=== PATIENT | female | born 1945 | race Caucasian/White ===

== ENCOUNTER 2018-12-07 18:49 | Emergency (ER) | payer MEDICARE ==
[~2018-12-07] VITALS: Ht 154.9 cm; Wt 109.1 kg
[~2018-12-07 18:49] MED LIST: ACTOS30 MG OR; ALBUTEROL90 MCG IN; ASPIRIN LOW DOS81 M2 PO; COREG12.5 MG PO; GLYBURIDE5 MG OR; HYDROCO/APAP1 TA9 PO; HYZAAR1 TA1 OR; HYZAAR1 TA2 PO; IBUPROFEN800 MG OR; LANTUS100 UNIT/M SC; LEVAQUIN500 MG OR; LEVOTHYROXIN88 MCG OR; LORTAB 5 OR; PRAVACHOL40 MG PO; TRICOR145 MG OR
[2018-12-07] MEDS ORDERED: DITROPAN PO (19:15)
[2018-12-07] MEDS ORDERED: LANTUS100 UNIT/M SC (19:15)
[2018-12-07] MEDS ORDERED: TIZANIDINE2 MG PO (19:16)
[2018-12-07] MEDS ORDERED: AMLODIPINE BESYL5 MG PO (19:16)
[2018-12-07] MEDS ORDERED: HUMALOG100 UNIT/M SC (19:17)
[2018-12-07 20:00] LABS: HEMOGLOBIN 12.9 g/dl (12.0-16.0); IMMATURE GRANULOCYTES 1.1 % (0.0-5.0); MEAN CORPUSCULAR HGB CONC 32.3 g/L CALC (32.0-36.0); NEUT# 6.15 thou/uL (2.00-7.15); RED BLOOD COUNT 4.3 mill/uL (4.20-5.60); RED CELL DISTRI WIDTH 12.9 % (11.5-15.5)
[2018-12-07 20:03] LABS: ALBUMIN 4.1 g/dL (3.2-5.0); BILIRUBIN, TOTAL 0.3 mg/dL (0.0-1.4); CREATININE 1.6 mg/dL (0.5-1.0); POTASSIUM 4.1 mmol/l (3.5-5.1); TOTAL PROTEIN 7.4 g/dL (6.3-8.2)
[2018-12-07 20:04] LABS: PROTHROMBIN TIME 10.6 SECONDS (9.0-12.5)
[2018-12-07 20:45] VITALS: BP 150/76
== END 2018-12-07 20:50 | disposition short-term general hospital (02) ==
LOC: ED 18:49
PROVIDERS: Emergency Medicine
DX: I63.9 Cerebral infarction, unspecified (principal); R29.704 NIHSS score 4; R53.1 Weakness; G81.90 Hemiplegia, unspecified affecting unspecified side; I10 Essential (primary) hypertension; E11.9 Type 2 diabetes mellitus without complications; Z79.4 Long term (current) use of insulin
CPT/HCPCS: J2997

== ENCOUNTER 2020-04-06 06:23 | Inpatient (IN) | payer MEDICARE ==
[2020-04-06] VITALS (11 sets, daily range): BP systolic 139–163; BP diastolic 53–75
[~2020-04-06] VITALS: Ht 154.9 cm; Wt 112.3 kg
[~2020-04-06 06:23] MED LIST changes: +AMLODIPINE BESYL5 MG PO; +DITROPAN PO; +HUMALOG100 UNIT/M SC; +TIZANIDINE2 MG PO
--- NOTE | 2020-04-06 06:25 | NUR ---
PATIENT TO ROOM 13 VIA EMS STRETCHER. C/O SOB ON/OFF FOR TWO WEEKS AND WORSE IN THE LAST 24 HOURS. PLACED ON MONITOR AND TRIAGE COMPLETED AT BEDSIDE.
--- NOTE | 2020-04-06 06:45 | NUR ---
PT INDICATES SHE IS BREATHING EASIER
[2020-04-06 06:55] LABS: HEMATOCRIT 30.9 % (37.0-47.0); HEMOGLOBIN 9.6 g/dl (12.0-16.0); IMMATURE GRANULOCYTES 2.2 % (0.0-5.0); MEAN CELL VOLUME 96.9 fL CALC (80.0-100.0); MEAN CORPUSCULAR HGB 30.1 pG CALC (26.0-32.0); MEAN CORPUSCULAR HGB CONC 31.1 g/dL CAL (32.0-36.0); RED BLOOD COUNT 3.19 mill/uL (4.20-5.60); RED CELL DISTRI WIDTH 12.9 % (11.5-15.5)
--- NOTE | 2020-04-06 06:57 | NUR ---
REPORT TO JAYE RIBEIRO.
[2020-04-06 07:00] LABS: MANUAL DIFFERENTIAL YES; PLATELET COUNT 339 thou/uL (130-400)
--- NOTE | 2020-04-06 07:00 | NUR ---
Assumed care of pt. pt in stretcher with hob elevated, resp labored with abd retractions noted, bipap on pt with rt at bedside to adjust settings. ekg obtained shows sr with lbbb. vital signs stable at this time. family at bedside.
[2020-04-06 07:10] LABS: ALBUMIN 4.5 g/dL (3.2-5.0); ALKALINE PHOSPHATASE 80 u/l (38-126); BILIRUBIN, TOTAL 0.4 mg/dL (0.0-1.4); BUN 62 mg/dL (8-23); BUN/CREATININE RATIO 27 (12-20 (CALC)); CARBON DIOXIDE 24 mmol/l (22-30); CHLORIDE 101 mmol/l (95-108); CREATININE 2.3 mg/dL (0.5-1.0); GFR 21 ML/MIN (>=60 (CALC)); GFR FOR AFR.AMER. 25 ML/MIN (>=60 (CALC)); SODIUM 135 mmol/l (137-146); TOTAL PROTEIN 7.8 g/dL (6.3-8.2)
[2020-04-06 07:11] LABS: ANION GAP 15 (6-22 (CALC)); POTASSIUM 5.3 mmol/l (3.5-5.1); SGOT/AST 49 u/l (9-36)
[2020-04-06 07:22] LABS: MYOGLOBIN 190 ng/mL (0 - 62)
--- NOTE | 2020-04-06 08:13 | NUR ---
Pt states " breathing is better" pt remains on bipap. Warm blankets given for comfort. family remains at bedside. vital signs stable.
[2020-04-06] MEDS ORDERED: LIPITOR40 M1 PO (08:15)
[2020-04-06] MEDS ORDERED: ARNUITY EL50 MCG/ACT IN (08:18)
[2020-04-06] MEDS ORDERED: LASIX20 MG PO (08:19)
[2020-04-06] MEDS ORDERED: HYDRALAZINE10 MG PO (08:19)
[2020-04-06] MEDS ORDERED: METOLAZONE5 MG PO (08:20)
[2020-04-06] MEDS ORDERED: LORATADINE10 M1 PO (08:22)
[2020-04-06 08:57] LABS: URINE BILIRUBIN - DIPSTICK NEGATIVE (NEGATIVE); URINE BLOOD DIPSTICK TRACE-INTACT (NEGATIVE); URINE COLOR YELLOW; URINE GLUCOSE - DIPSTICK NEGATIVE (NEGATIVE); URINE KETONE NEGATIVE (NEGATIVE); URINE LEUK ESTERASE NEGATIVE (NEGATIVE); URINE NITRITE - DIPSTICK NEGATIVE (Negative); URINE UROBILINOGEN - DIPSTICK 0.2 E.U./dL (0.2)
--- NOTE | 2020-04-06 08:59 | NUR ---
Pt resting comfortably in bed, daughter at bedside, vital sign stable at this time. 700cc clear urine noted in crockett catheter bag.
[2020-04-06 09:11] LABS: URINE PROTEIN - DIPSTICK Trace mg/dL (NEG-TRACE)
--- NOTE | 2020-04-06 09:16 | NUR ---
SBAR PRINTED TO FLOOR
--- NOTE | 2020-04-06 10:03 | NUR ---
Report to Renetta CEE.
--- NOTE | 2020-04-06 10:40 | NUR ---
Pt taken to ICU via stretcher in stable condition. She voiced appreciation of care, states' staff was great"
--- NOTE | 2020-04-06 10:50 | NUR ---
PT ARRIVED TO UNIT AT 1025 VIA STRETCHER WITH ER STAFF; ALERT AND ORIENTED. ASSISTED TO BED X 4 PERSON ASSIST; PT TOLERATED TRANSFER WELL. ARRIVED ON OXYGEN 2L VIA NC; SPO2 95-97%; RESPIRATIONS EVEN AND UNLABORED. DENIES PAIN CURRENLTY; REPORTS CHRONIC BACK PAIN WHICH SHE RECEIVES STEROID INJECTIONS FOR; ALSO TAKES LORTAB NEEDED AT HOME. NITRO GTT INFUSING ON ARRIVAL AT 5 MCG/MIN WITH FLUIDS AT KVO. LAFLEUR DRAINGING CLEAR YELLOW URINE; 900ML EMPTIED AT THIS TIME. LUNGS ARE DIMINISHED; 4+ BLE EDEMA. SKIN INTACT. 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 ORIENTED TO ROOM AND CALL LIGHT SYSTEM. PLAN OF CARE DISCUSSED. PT ENCOURAGED TO VERBALIZE CONCERNS. STATES UNDERSTANDING. SAFETY MEASURES IN PLACE. CALL LIGHT WITHIN REACH.
--- NOTE | 2020-04-06 11:09 | NUR ---
Q4 DUONEB NOT ADMINISTERED AT THIS TIME PER PT IS R/O COVID AND MDI ORDER IS NEEDED. THIS WAS COMMUNICATED TO rn AND METER CHANGES RECORDS CLERK. PT IN NO APPARENT DISTRESS. VITAL SIGNS STABLE. RT TO MONIOR.
--- NOTE | 2020-04-06 12:01 | NUR ---
NITRO DRIP TITRATED UP TO 10 MCG/MIN FOR ELEVATED BLOOD PRESSURE.
--- NOTE | 2020-04-06 13:17 | NUR ---
DAUGHTER CALLED FOR UPDATE. PT RESTING SEMI FOWLERS WITH EYES CLOSED AND NO SIGNS OF DISTRESS. VSS.
--- NOTE | 2020-04-06 16:00 | NUR ---
PT SITTING UP IN BED TALKING TO CASE MANAGEMENT ON HER CELL PHONE; ALERT AND ORIENTED. CONTINUES TO NITRO DRIP AT 10 MCG/MIN; IV SITES APPEAR HEALTHY. SAFETY MEASURES IN PLACE. CALL LIGHT WITHIN REACH.
--- NOTE | 2020-04-06 18:00 | NUR ---
SITTING UP EATING DINNER. NO REQUESTS OR CONCERNS AT THIS TIME.
--- NOTE | 2020-04-06 20:00 | NUR ---
RESTING IN BED IN SEMI-FOWLERS POSITION. RESP UNALBORED AT REST. O2 ON AT 2 L NC. O2 SAT 97% BREATH SOUNDS CLEAR IN UPPER LOBES DIMINISHED IN BASES. PATIENT STATES SHE FEELS SHE IS BREATHING BETTER THAN EARLIER TODAY. 4+ PITTING EDEMA OF BLE. WEAK PERIPHERAL PULSES PALPABLE. SALINE LOCK INTACT IN LAC AND IV IN LW WITH NS AT KVO AND NTG GTT AT 10 MCG/MIN. PATIENT DENIES ANY CHEST PAIN OR DISCOMFORTS. GARMENT INSPECTOR SHOWS SR WITH IVCD. DISCUSSED PLAN OF CARE. DENIES NEEDS AT THIS TIME. DR SHEEHAN INFORMED OF ELEVATED TROPONIN OF 0.134. NO NEW ORDERS AT THIS TIME.
--- NOTE | 2020-04-06 22:00 | NUR ---
WATCHING TV. VSS. NO COMPLAINTS VOICED. GIVEN HS SNACK OF KORINA VILLALOBOS AND STUART.
[2020-04-07] VITALS (21 sets, daily range): BP systolic 122–168; BP diastolic 51–74
--- NOTE | 2020-04-07 00:05 | NUR ---
VSS. NO C/O CHEST PAIN OR DISCOMFORTS, NO C/O SOB. RESP NON-LABORED AT REST. O2 AT 2 L NC, O2 SAT 96% SR WITH BBB ON MONITOR. NTG GTT CONTINUES AT 10 MCG/MIN.
--- NOTE | 2020-04-07 02:00 | NUR ---
NO CHANGES TO REPORT. RESTING IN PRONE POSITION.
--- NOTE | 2020-04-07 03:00 | NUR ---
NO CHANGES TO REPORT. RESTING IN PRONE POSITION.
--- NOTE | 2020-04-07 04:05 | NUR ---
RESTING QUIETLY IN BED. IN NO APPARENT DISTRESS.
[2020-04-07 06:25] LABS: HEMATOCRIT 27.1 % (37.0-47.0); HEMOGLOBIN 8.4 g/dl (12.0-16.0); IMMATURE GRANULOCYTES 1.5 % (0.0-5.0); MEAN CELL VOLUME 95.8 fL CALC (80.0-100.0); MEAN CORPUSCULAR HGB 29.7 pG CALC (26.0-32.0); NEUT# 14.73 thou/uL (2.00-7.15); RED BLOOD COUNT 2.83 mill/uL (4.20-5.60); RED CELL DISTRI WIDTH 12.7 % (11.5-15.5)
[2020-04-07 06:49] LABS: BILIRUBIN, TOTAL 0.4 mg/dL (0.0-1.4); CHOLESTEROL HDL RATIO 3.3 (<4.4 (CALC)); CREATININE 2.4 mg/dL (0.5-1.0); POTASSIUM 4.9 mmol/l (3.5-5.1)
[2020-04-07 06:53] LABS: MAGNESIUM 2.8 mg/dL (1.6-2.3)
--- NOTE | 2020-04-07 07:35 | NUR ---
REPORT RECEIVED FROM JAYE JOSHUA. PT RESTING IN BED SEMI FOWLERS; ALERT AND ORIENTED X 3. PULLED UP IN BED AND REPOSITIONED INTO HIGH FOWLERS FOR BREAKFAST. DENIES PAIN. RESPIRATIONS EVEN AND UNLABORED ON OXYGEN 2L VIA NC. NITRO INFUSING AT 10 MCG/MIN; NS AT KVO. PERIPHERAL IV SITES X 2 APPEAR HEALTHY. LUNGS ARE DIMINISHED; PITTING EDEMA SLIGHTLY IMPROVED TO BLE. LAFLEUR CATHETER DRAINING CLEAR PALE YELLOW URINE. PLAN OF CARE REVIEWED. PT ENCOURAGED TO VERBALIZE CONCERNS. STATES UNDERSTANDING. SAFETY MEASURES IN PLACE. CALL LIGHT WITHIN REACH.
--- NOTE | 2020-04-07 08:55 | NUR ---
FAMILY CALLED FOR UPDATE.
--- NOTE | 2020-04-07 09:47 | NUR ---
DR. RILEY AT BEDSIDE.
--- NOTE | 2020-04-07 11:56 | NUR ---
PT ASSISTED UP INTO BEDSIDE FOR LUNCH WITH FEET ELEVATED. NITRO DRIP TITRATED DOWN TO 5 MCG/MIN DUE TO WNL BLOOD PRESSURES. SPO2 REMAINS IN THE HIGH 90'S ON 2L VIA NC.
--- NOTE | 2020-04-07 15:17 | NUR ---
UP TO BSC FOR LARGE BM THEN REPOSITIONED INTO BED SEMI FOWLERS.
--- NOTE | 2020-04-07 16:33 | NUR ---
FAMILY CALLED WITH MULTIPLE QUESTIONS AND CONCERNS REGARDING PTS PLAN OF CARE; UPDATED AND NOTIFIED THAT MD WILL UPDATE AFTER CARDIOLOGY CONSULT. SON AND PATIENT REQUESTING THAT HER HOME LANTUS BE USED INSTEAD OF LEVEMIR; DR. RILEY GAVE NEW ORDERS FOR LANTUS. SON TO BRING HOME MED.
--- NOTE | 2020-04-07 18:26 | NUR ---
LANTUS GIVEN; PT ATE 100% OF DINNER. SPEAKING TO FAMILY ON CELL PHONE. NO FURTHER REQUESTS OR CONCERNS AT THIS TIME.
--- NOTE | 2020-04-07 20:20 | NUR ---
pt is awake, alert and oriented x4. 2 l nc. sob with exertion only. sr on tele. afebrile. poc for discussed, pt understands and agrees. crockett intact, drains yellow/clear urine. nitro drip infusing properly, ns at kvo. pt able to self reposition. nursing assessment performed. denies chest pain or any pain. call light within reach.
--- NOTE | 2020-04-07 21:32 | NUR ---
NOTIFIED DR RILEY OF PATIENT'S ACCUCCHECK RESULTS TONIGHT. NEW ORDERS RECEIVED.
--- NOTE | 2020-04-07 22:10 | NUR ---
PATIENT GIVEN PO BEDTIME MED AND NOVOLOG [address] ORDER. PT HAS NO COMPLAINTSOF PAIN, NO NEEDS AT THIS TIME. CALL LIGHT WITHIN REACH.
[2020-04-08] VITALS (9 sets, daily range): BP systolic 141–176; BP diastolic 51–78
--- NOTE | 2020-04-08 01:10 | NUR ---
PT AWAKENS EASILY WITH VERBAL STIMULI. AFEBRILE. NO COMPLAINTS OF PAIN. 1000 ML OF URINE EMPTIED FROM FEOLY BAG. CELLPHONE PUT TO CHARGE PER REQUEST. CALL LIGHT WITHIN REACH.
[2020-04-08 05:28] LABS: HEMATOCRIT 27.6 % (37.0-47.0); HEMOGLOBIN 8.6 g/dl (12.0-16.0); IMMATURE GRANULOCYTES 1.7 % (0.0-5.0); MEAN CELL VOLUME 94.2 fL CALC (80.0-100.0); MEAN CORPUSCULAR HGB 29.4 pG CALC (26.0-32.0); MEAN CORPUSCULAR HGB CONC 31.2 g/dL CAL (32.0-36.0); NEUT# 12.61 thou/uL (2.00-7.15); RED BLOOD COUNT 2.93 mill/uL (4.20-5.60); RED CELL DISTRI WIDTH 12.6 % (11.5-15.5)
[2020-04-08 05:49] LABS: CREATININE 2.6 mg/dL (0.5-1.0); MAGNESIUM 2.6 mg/dL (1.6-2.3); POTASSIUM 4.9 mmol/l (3.5-5.1)
--- NOTE | 2020-04-08 05:52 | NUR ---
LAB CALLED BUN 99 FROM [facility] MEDEIROS.
--- NOTE | 2020-04-08 06:00 | NUR ---
PT AWAKENS EASILY WHEN SPOKEN TO. AFEBRILE. LAFLEUR CATH EMPTIED. IV X2 INTACT. NO COMPLAINTS OF PAIN. NO NEEDS AT THIS TIME. AM MEDS GIVEN.
--- NOTE | 2020-04-08 07:30 | NUR ---
REPORT RECEIVED FROM JAYE SULLIVAN. PT RESTING IN BED SEMI FOWLERS; RESPOSITIONED HIGHER IN BED FOR BREAKFAST. DENIES PAIN. RESPIRATIONS EVEN AND UNLABORED ON OXYGEN 2L VIA NC; SPO2 98%. ACCU CHECK 170. NITRO DRIP INFUSING AT 5 MCG/MIN; NS AT KVO; PERIPHERAL IV SITES APPEAR HEALTHY AND FLUSH. LAFLEUR DRAINING CLEAR PALE YELLOW URINE IN LARGE AMOUNTS. PLAN OF CARE REVIEWED. PT ENCOURAGED TO VERBALIZE CONCERNS. STATES UNDERSTANDING. SAFETY MEASURES IN PLACE. CALL LIGHT WITHIN REACH.
--- NOTE | 2020-04-08 08:30 | NUR ---
DR. RILEY AT BEDSIDE. OXGYEN REMOVED AND PT NOW ON ROOM AIR. LASIX DOSE REDUCED TO DAILY AND PO. SR ON MORTISING MACHINE OPERATOR. WILL CONTINUE TO MONITOR.
--- NOTE | 2020-04-08 10:43 | NUR ---
FAMILY CALLED FOR UPDATE AND TO EXPRESS CONCERNS. DAUGHTER IN LAW REQUESTING ECHO AND WORRIED ABOUT HOW PT WILL GET AROUND AT HOME; VERY NERVOUS. ATTEMPTED TO REASSURE; WILL NOTIFY DR. RILEY OF CONCERNS.
--- NOTE | 2020-04-08 11:28 | NUR ---
UP TO BEDSIDE CHAIR FOR LUNCH. SPO2 95% WITH ACTIVITY TO CHAIR. DENIES PAIN. RESPIRATIONS EVEN AND UNLABORED ON ROOM AIR. NITRO AND FLUIDS DISCONTINUED.
--- NOTE | 2020-04-08 12:52 | NUR ---
DR. RILEY SPOKE WITH FAMILY ON THE PHONE AND GAVE UPDATE. LAFLEUR CATHETER REMVOED; PT TOLERATED WELL. 950 ML OF PALE YELLOW URINE EMPTIED AT TIME OF DC.
--- NOTE | 2020-04-08 13:13 | NUR ---
WALK TEST PERFORMED WITH WALKER AND STAND BY ASSIST. AT REST ON ROOM AIR SPO2 97%; DURING AMBULATION SPO2 DECREASED TO 90%. MILD SOB NOTED, BUT PT DENIES ANY DISTRESS, ONLY LOWER BACK PAIN. PT STATES SHE IS USUALLY ONLY ABLE TO TOLERATE SHORT WALKS DUE TO HER CHRONIC BACK PAIN.
--- NOTE | 2020-04-08 13:59 | NUR ---
PERIPHERAL IV SITES DISCONTINUED; BOTH SITES APPEAR HEALTHY; CATHETERS INTACT AFTER DC. PT TOLERATED WELL. DAUGHTER IN LAW ALONDRA NOTIFIED THAT PT IS READY FOR DISCHARGE. PHYSICAL SCRIPT PROVIDED FOR OUTPATIENT ECHO.
--- NOTE | 2020-04-08 14:55 | NUR ---
Discharge instructions given. Patient verbalizes understanding of same. Discharged in stable condition via Wheelchair to Home with family. All belongings sent with pt.
== END 2020-04-08 14:55 | disposition home or self-care (01) | DRG 291 ==
LOC: ED 06:23 → ED-I 09:10 → ED 09:18 → ICU 09:19
PROVIDERS: Emergency Medicine; Nurse Practitioner; ADMIT Internal Medicine; ATTEND Internal Medicine
PROC: 5A09357 Assistance with Respiratory Ventilation, Less than 24 Consecutive Hours, Continuous Positive Airway Pressure (ICD-10-PCS; principal; 2020-04-06)
DX: I13.0 Hypertensive heart and chronic kidney disease with heart failure and stage 1 through stage 4 chronic kidney disease, or unspecified chronic kidney disease (principal); J96.01 Acute respiratory failure with hypoxia; N17.9 Acute kidney failure, unspecified; I24.8 Other forms of acute ischemic heart disease; I50.9 Heart failure, unspecified; I44.7 Left bundle-branch block, unspecified; E11.22 Type 2 diabetes mellitus with diabetic chronic kidney disease; N18.9 Chronic kidney disease, unspecified; E03.9 Hypothyroidism, unspecified; E87.5 Hyperkalemia; E78.5 Hyperlipidemia, unspecified; M54.9 Dorsalgia, unspecified; G89.29 Other chronic pain; Z79.4 Long term (current) use of insulin; Z20.828 Contact with and (suspected) exposure to other viral communicable diseases
CPT/HCPCS: J3475

== ENCOUNTER 2020-05-07 12:17 | Emergency (ER) | payer MEDICARE ==
[~2020-05-07] VITALS: Ht 154.9 cm; Wt 100.0 kg
[~2020-05-07 12:17] MED LIST changes: +ARNUITY EL50 MCG/ACT IN; +HYDRALAZINE10 MG PO; +LASIX20 MG PO; +LIPITOR40 M1 PO; +LORATADINE10 M1 PO; +METOLAZONE5 MG PO
[2020-05-07 15:19] LABS: URINE BILIRUBIN - DIPSTICK NEGATIVE (NEGATIVE); URINE BLOOD DIPSTICK NEGATIVE (NEGATIVE); URINE CLARITY SL CLOUDY; URINE COLOR YELLOW; URINE GLUCOSE - DIPSTICK NEGATIVE (NEGATIVE); URINE KETONE NEGATIVE (NEGATIVE); URINE LEUK ESTERASE TRACE (Negative); URINE NITRITE - DIPSTICK NEGATIVE (Negative); URINE PH 6.5 (4.5-8.0); URINE PROTEIN - DIPSTICK 100 mg/dL (NEG-TRACE); URINE UROBILINOGEN - DIPSTICK 0.2 E.U./dL (0.2)
[2020-05-07 15:25] LABS: URINE SQUAMOUS EPITHELIAL CELL FEW EPI/hpf (0-FEW)
[2020-05-07 15:26] LABS: URINE BACTERIA MANY hpf
[2020-05-07 15:31] LABS: HEMATOCRIT 28.4 % (37.0-47.0); HEMOGLOBIN 8.9 g/dl (12.0-16.0); IMMATURE GRANULOCYTES 1.2 % (0.0-5.0); MEAN CELL VOLUME 96.3 fL CALC (80.0-100.0); MEAN CORPUSCULAR HGB 30.2 pG CALC (26.0-32.0); MEAN CORPUSCULAR HGB CONC 31.3 g/dL CAL (32.0-36.0); NEUT# 8.54 thou/uL (2.00-7.15); RED BLOOD COUNT 2.95 mill/uL (4.20-5.60); RED CELL DISTRI WIDTH 12.9 % (11.5-15.5)
[2020-05-07 15:43] LABS: ALBUMIN 3.9 g/dL (3.2-5.0); BILIRUBIN, TOTAL 0.4 mg/dL (0.0-1.4); CREATININE 2.5 mg/dL (0.5-1.0); POTASSIUM 3.7 mmol/l (3.5-5.1); TOTAL PROTEIN 6.6 g/dL (6.3-8.2)
[2020-05-07 15:58] VITALS: BP 147/63
== END 2020-05-07 15:58 | disposition short-term general hospital (02) ==
LOC: ED 12:17
PROC: 0T9B70Z Drainage of Bladder with Drainage Device, Via Natural or Artificial Opening (ICD-10-PCS; principal; 2020-05-07)
PROC: 2W3MX1Z Immobilization of Left Lower Extremity using Splint (ICD-10-PCS; 2020-05-07)
DX: S72.402A Unspecified fracture of lower end of left femur, initial encounter for closed fracture (principal); M97.12XA Periprosthetic fracture around internal prosthetic left knee joint, initial encounter; E11.9 Type 2 diabetes mellitus without complications; I10 Essential (primary) hypertension; E03.9 Hypothyroidism, unspecified; E66.9 Obesity, unspecified; W01.0XXA Fall on same level from slipping, tripping and stumbling without subsequent striking against object, initial encounter; Y92.89 Other specified places as the place of occurrence of the external cause; Z79.4 Long term (current) use of insulin

== ENCOUNTER 2020-10-14 09:36 | Inpatient (IN) | payer MEDICARE ==
[~2020-10-14] VITALS: Ht 154.9 cm; Wt 107.5 kg
--- NOTE | 2020-10-14 08:00 | NUR ---
PT IN THE BED. NO COMPLAINT OF PAIN. OXYGEN IS STILL RUNNING. NO SIGNS OF RESPIRATORY DISTRESS. BP IS HIGH MEDICATION GIVEN. PT WOULD LIKE TO LEAVE. EDUCATED HER ON WHO MAKES THAT DECISION AND THE DOCTORS WILL BE HERE IN THE MORNING IF SHE WOULD LIKE TO TALK TO THEM. PT TUCKED IN BED CONTINUE TO MONITOR PT. CALL LIGHT WITHIN REACH.
--- NOTE | 2020-10-14 09:36 | NUR ---
PT TO ROOM 15 VIA EMS BEDSIDE TRAIGE.
--- NOTE | 2020-10-14 10:01 | NUR ---
Reassessment of patient completed. No distress noted.
[2020-10-14 11:02] LABS: HEMATOCRIT 30.8 % (37.0-47.0); HEMOGLOBIN 9.6 g/dl (12.0-16.0); MEAN CELL VOLUME 96.9 fL CALC (80.0-100.0); MEAN CORPUSCULAR HGB 30.2 pG CALC (26.0-32.0); MEAN CORPUSCULAR HGB CONC 31.2 g/dL CAL (32.0-36.0); NEUT# 9.17 thou/uL (2.00-7.15); RED BLOOD COUNT 3.18 mill/uL (4.20-5.60); RED CELL DISTRI WIDTH 13.8 % (11.5-15.5)
--- NOTE | 2020-10-14 11:10 | NUR ---
ENCOURAGED PT TO PROVIDE A URINE SAMPLE
[2020-10-14 11:17] LABS: ALBUMIN 4.1 g/dL (3.2-5.0); BILIRUBIN, TOTAL 0.6 mg/dL (0.0-1.4); CREATININE 2.4 mg/dL (0.5-1.0); POTASSIUM 4.8 mmol/l (3.5-5.1); TOTAL PROTEIN 7.6 g/dL (6.3-8.2)
[2020-10-14 11:21] LABS: ACT PARTIAL THROMBO TIME 29.4 SECONDS (20.0-32.5); INTERNATIONAL NORMALIZED RATIO 1.2 RATIO (0.7-1.3); PROTHROMBIN TIME 11.6 SECONDS (9.0-12.5)
[2020-10-14 11:23] LABS: D-DIMER 1.23 mg/L (0.19-0.60)
--- NOTE | 2020-10-14 11:49 | NUR ---
SHE HAS DECLINED THE STRAIT CATH @ THIS TIME
[2020-10-14] MEDS ORDERED: CARVEDILOL25 MG PO (12:31)
[2020-10-14] MEDS ORDERED: SINGULAIR10 MG PO (12:32)
[2020-10-14] MEDS ORDERED: FERROUS SULF325 M2 PO (12:32)
[2020-10-14] MEDS ORDERED: LANTUS100 UNIT/M SC ×2 (12:33)
[2020-10-14] MEDS ORDERED: DITROPAN XL5 MG PO (12:34)
--- NOTE | 2020-10-14 12:36 | NUR ---
Reassessment of patient completed. No distress noted.
[2020-10-14] MEDS ORDERED: FLONASE AL50 MCG/ACT EN (12:42)
[2020-10-14] MEDS ORDERED: HYDRALAZINE10 M2 PO (13:22)
[2020-10-14] MEDS ORDERED: TIZANIDINE2 MG PO (13:23)
[2020-10-14] MEDS ORDERED: LORTAB 5/3255 MG PO (13:26)
[2020-10-14] MEDS ORDERED: LASIX 20 MG TAB20 MG PO (13:27)
[2020-10-14] MEDS ORDERED: FLONASE SE27.5 MCG/S (13:28)
[2020-10-14] MEDS ORDERED: SENOKOT S1 TAB PO (13:29)
--- NOTE | 2020-10-14 13:39 | NUR ---
Reassessment of patient completed. No distress noted.
--- NOTE | 2020-10-14 13:57 | NUR ---
PATIENT IS RESTING IN STRETCHER WITH NO S/S OF DISTRESS NOTED. DAUGHTER IN LAW IN ROOM ASSISTED WITH QUESTIONS AND STATED PATIENT HAD A BM 10/13/20. ASSESSMENT DONE . PATIENT IS A&O X2. LUNGS SOUNDS/DIMINISHED. +1 EDEMA IN FREIDA LEGS. REDNESS IN BUTTOCKS. CALL LIGHT IN REACH.
--- NOTE | 2020-10-14 15:30 | NUR ---
PT TAKEN TO 2ND FLOOR ON TELE BY JAYE
--- NOTE | 2020-10-14 16:05 | NUR ---
REPORT RECEIVED FROM KEELY IN ED, PT ARRIVED ON UNIT @ 1525 TRANSPORTED VIA STRETCHER AND ASSISTED TO BED WITH MAX ASSIST OF 4 STAFF. HYPERVENTILATING WITH DISTRESS USING ASSESSORY MYSCLES AND STATING "I CANT BREATHE". O2 SAT WAS 82% ON R/A, O2 @ 3L APPIED, SATS WENT UP 87%, O2 INCREASED TO 5L THEN SATS UP 97%. PT REPOSITIONED TO HIGH FOWLERS. RESPIRATORY CALLED TO ASESS PT. BREATHING IMPROVED, O2 DOWN 3L WITH SATS MAINTAINING @ 97% RESP ARRIVED AND STATED PT OK AT THIS TIME. WILL CONTINUE TO MONITOR.
--- NOTE | 2020-10-14 16:45 | NUR ---
BREATHING IMPROVED BUT ASSESSORY MUSCLES ARE STILL BEING USES.
[2020-10-14 19:00] VITALS: BP 165/71
[2020-10-15] VITALS: BP 146/54
--- NOTE | 2020-10-15 | NUR ---
PT CONTINUES SLEPING PEACEFULLY IN BED WITH OXYGEN STILL RUNNING. WILL CONTINUE TO MONITOR. CALL LIGHT WITHIN REACH
[2020-10-15 04:00] VITALS: BP 157/72
[2020-10-15 06:07] LABS: HEMOGLOBIN 9.2 g/dl (12.0-16.0); IMMATURE GRANULOCYTES 1.5 % (0.0-5.0); MEAN CELL VOLUME 97.1 fL CALC (80.0-100.0); MEAN CORPUSCULAR HGB 29.8 pG CALC (26.0-32.0); MEAN CORPUSCULAR HGB CONC 30.7 g/dL CAL (32.0-36.0); NEUT# 6.43 thou/uL (2.00-7.15); RED BLOOD COUNT 3.09 mill/uL (4.20-5.60); RED CELL DISTRI WIDTH 13.9 % (11.5-15.5)
[2020-10-15 06:30] LABS: ALBUMIN 3.7 g/dL (3.2-5.0); BILIRUBIN, TOTAL 0.6 mg/dL (0.0-1.4); CREATININE 2.1 mg/dL (0.5-1.0); POTASSIUM 4.9 mmol/l (3.5-5.1)
[2020-10-15 08:56] VITALS: BP 157/55
--- NOTE | 2020-10-15 08:56 | NUR ---
PT RESTING IN SEMI FOWLERS POSITION.PT IS A/O X3. ASSESSMENT AND VITALS COMPLETED. BP 157/55, HR 80, O2 99% ON 2.5L NC. RESPIRATIONS ARE EVEN AND UNLABORED WITH NO DISTRESS NOTED. HEART RHYTHM IS NORMAL WITH TELE IN PLACE, SR WITH IVCD PER ER MONITORING. BOWEL SOUNDS ARE ACTIVE.RADIAL PULSE STRONG.PEDAL PULSES WEAK. #20GEMS LEFT WRIST FLUSHED, SITE APPEARS HEALTHY AND PATENT. RIGHT SIDED WEAKNESS NOTED. WOUND NOTED ON LEFT BUTTOCKS. REDDNESS NOTED TO GROIN AND ABD FOLD. PT DENEIS OF ANYPAINS OR DISCOMFORTS AT THIS TIME. ALL SAFETY PRECAUTIONS ARE IN PLACE WITH CALL LIGHT IN REACH. AIR/CONTACT PRECAUTIONS ARE IN PLACE.WILL CONTINUE TO MONITOR
[2020-10-15 12:18] VITALS: BP 132/56
[2020-10-15 13:25] LABS: URINE BILIRUBIN - DIPSTICK NEGATIVE (NEGATIVE); URINE BLOOD DIPSTICK NEGATIVE (NEGATIVE); URINE COLOR YELLOW; URINE GLUCOSE - DIPSTICK NEGATIVE (NEGATIVE); URINE KETONE NEGATIVE (NEGATIVE); URINE NITRITE - DIPSTICK NEGATIVE (Negative); URINE PH 5.5 (4.5-8.0); URINE PROTEIN - DIPSTICK >=300 mg/dL (NEG-TRACE); URINE SPECIFIC GRAVITY 1.025; URINE UROBILINOGEN - DIPSTICK 0.2 E.U./dL (0.2)
[2020-10-15 13:27] LABS: URINE LEUK ESTERASE MODERATE (NEGATIVE)
[2020-10-15 13:36] LABS: URINE SQUAMOUS EPITHELIAL CELL FEW EPI/hpf (0-FEW)
[2020-10-15 14:50] VITALS: BP 118/50
--- NOTE | 2020-10-15 16:04 | NUR ---
DAUGHTER UPDATED ON PT STATUS. PASSCODE PROVIDED.
--- NOTE | 2020-10-15 16:56 | NUR ---
PT RESTING IN SEMI FOWLERS POSITION. RESPIRATIONS ARE EVEN AND UNLABORED ON 2L NC. TELE MONITORING IN PLACE. ATTEMPTED TO START NEW IV, UNSUCCESSFUL X2. #20G IN LW REMAINS, SITE APPEARS HEALTHY AND PATENT. PT DENEIS OF ANY PAINS OR DISCOMFORTS. ALL SAFETY PRECAUTIONS AER IN PLACE WITH CALL LIGHT IN REACH. WILL CONTINUE TO MONITOR
--- NOTE | 2020-10-15 17:12 | NUR ---
ACCU CHECK RESULTING IN 415. GULCOSE ORDERED AND 6 UNITS ADMINISTERED.
--- NOTE | 2020-10-15 17:40 | NUR ---
#24G IN RFA STARTED BY JAYE KEYS. PT TOLERATED WELL. #20G REMOVED FROM LW, WITH CATHATER STILL INTACT.
--- NOTE | 2020-10-15 18:38 | NUR ---
STAT GLUCOSE RESULTING IN 232. REPEAT OF ACCUCHECK RESULTING IN 266. LOGAN PYLE NOTIFIED.
[2020-10-15 19:00] VITALS: BP 140/54
--- NOTE | 2020-10-15 22:06 | NUR ---
PHYSICAL ASSESMENT COMPLETE. PT CURRENTLY DENIES PAIN OR DISCOMFORT. SCHEDULED MEDICATIONS AND PRN MEDICATION ADMINISTERED, SEE E-MAR. PT DENIES ANY NEEDS AT THIS TIME. PLAN OF CARE REVIEWED, PT DENIES QUESTIONS, VERBALIZES UNDERSTANDING. ITEMS WITHIN REACH, BED LOCKED IN LOW POSITION W/ BEDRAILS UP X2. CALL BENITES WITHIN REACH, AGREES TO CALL PRN.
[2020-10-16] VITALS: BP 155/55
--- NOTE | 2020-10-16 00:03 | NUR ---
PT LAYING IN BED WITH EYES CLOSED, APPEARS TO BE SLEEPING, APPEARS COMFORTABLE AND IN NO DISTRESS. RESPIRATIONS REGULAR AND UNLABORED. ITEMS REMAIN WITHIN REACH, CALL BENITES REMAINS WITHIN REACH. BED REMAINS LOCKED AND IN LOW POSITION WITH BEDRAILS UP X2. WILL CONTINUE TO MONITOR.
[2020-10-16 04:00] VITALS: BP 148/66
[2020-10-16 05:15] LABS: HEMATOCRIT 29.7 % (37.0-47.0); HEMOGLOBIN 8.9 g/dl (12.0-16.0); MEAN CELL VOLUME 97.7 fL CALC (80.0-100.0); MEAN CORPUSCULAR HGB 29.3 pG CALC (26.0-32.0); NEUT# 7.21 thou/uL (2.00-7.15); RED BLOOD COUNT 3.04 mill/uL (4.20-5.60); RED CELL DISTRI WIDTH 13.6 % (11.5-15.5)
--- NOTE | 2020-10-16 05:27 | NUR ---
PT RESTING IN BED, NO SIGNS OF DISTRESS NOTED, RESP EVEN AND UNLABORED. PT VOICES NO NEEDS OR COMPLAINTS AT THIS TIME. CALL LIGHT IN REACH, CONTINUE TO MONITOR.
[2020-10-16 05:39] LABS: ALBUMIN 3.5 g/dL (3.2-5.0); BILIRUBIN, TOTAL 0.4 mg/dL (0.0-1.4); CREATININE 2.2 mg/dL (0.5-1.0); TOTAL PROTEIN 6.5 g/dL (6.3-8.2)
--- NOTE | 2020-10-16 07:30 | NUR ---
RECIEVED REPORT FROM JOHN. CEE
[2020-10-16 07:46] VITALS: BP 157/68
--- NOTE | 2020-10-16 07:46 | NUR ---
PT RESTING IN SEMI FOWLERS POSITION UPON ENTERING ROOM. PT IS A/O X3. ASSESSMENT AND VITALS COMPLETED. BP 157/68, HR 72, O2 98% ON ROOM AIR. 2L NC PRN AT BEDSIDE. RESPIRATIONS ARE EVEN AND UNLABORED WITH NO DISTRESS NOTED. HEART RHYTHM IS NORMAL WITH TELE IN PLACE, SR WITH IVCD PER ER MONITORING. BOWEL SOUNDS ARE ACTIVE.LAST BM 10/13/20. PT REFUSES ANYTHING TO ASSIST WITH BM . RADIAL PULSES STRONG. PEDAL PULSES WEAK. TRACE EDEMA NOTED TO BLE. #24G IN RFA INFUSING WITH IVF PER ORDER, SITE APPEARS HEALTHY AND PATENT. REDDENED BUTTOCK AND GROIN NOTED. SMALL WOUND LOCATED ON LEFT BUTTOCK NOTED. RIGHT SIDED WEAKNESS NOTED. PT DENIES OF ANY PAINS OR DISCOMFORTS. ALL SAFETY PRECAUTIONS AR EIN PLACE. WILL CONTINUE TO MONITOR
--- NOTE | 2020-10-16 09:02 | NUR ---
O2 SAT REMAINS AT 97% ON ROOM AIR. RESPIRATIONS ARE EVEN AND UNLABORED WITH NO DISTRESS NOTED.
[2020-10-16 10:30] VITALS: BP 124/85
--- NOTE | 2020-10-16 10:30 | NUR ---
DR GARCIA AT BEDSIDE
--- NOTE | 2020-10-16 11:30 | NUR ---
PT RESTING IN SEMI FOWLERS POSTION RESPIRATIONS ARE EVEN AND UNLABORED ON ROOM AIR, NO DISTRESS NOTED. IVF INFUSING WITH EASE, SITE APPEARS HEALTHY AND PATENT. ACCUCHECK RESULTING IN 253, COVERAGE ADMINISTERED. PT DENIES OF ANY PAINS. ALL SAFETY PRECAUTIONS ARE IN PLACE. WILL CONTINUE TO MONITOR.
--- NOTE | 2020-10-16 12:42 | NUR ---
PHYSICAL THERAPY CALLED. INFORMED THAT PT WOULD BE IN LATER IN AFTERNOON TO ASSIST WITH GETTING PT UP TO CHAIR.
--- NOTE | 2020-10-16 14:46 | NUR ---
PHYSICAL THERAPY AT BEDSIDE
--- NOTE | 2020-10-16 14:59 | NUR ---
PT O2 SAT DESAT TO 91% WHEN GETTING UP TO CHAIR WITH PT. MONSTER SHERMANRP NOTFIED.
[2020-10-16 15:25] VITALS: BP 153/62
--- NOTE | 2020-10-16 16:35 | NUR ---
PT RESTING IN BACK IN BED. RESPIRATIONS ARE EVEN AND UNLABORED ON ROOM AIR. NO DISTRESS NOTED. TELE MONITORING IN PLACE.IVF INFUSING PER ORDER, SITE APPEARS HEALTHY AND PATENT. PT DENIES OF ANY PAINS OR DISCOMFORTS. ALL SAFETY PRECAUTIONS ARE IN PLACE WITH CALL LIGHT IN REACH. WILL CONTINUE TO MONITOR.
[2020-10-16 18:45] VITALS: BP 148/62
[2020-10-17] VITALS (7 sets, daily range): BP systolic 127–178; BP diastolic 54–83
[2020-10-17 06:07] LABS: HEMOGLOBIN 8.6 g/dl (12.0-16.0); MEAN CELL VOLUME 96.9 fL CALC (80.0-100.0); MEAN CORPUSCULAR HGB 29.8 pG CALC (26.0-32.0); MEAN CORPUSCULAR HGB CONC 30.7 g/dL CAL (32.0-36.0); RED BLOOD COUNT 2.89 mill/uL (4.20-5.60); RED CELL DISTRI WIDTH 13.4 % (11.5-15.5)
[2020-10-17 06:09] LABS: POTASSIUM 4.8 mmol/l (3.5-5.1)
--- NOTE | 2020-10-17 08:05 | NUR ---
ASSESSMENT IS COMPLETED: IV SITE IS FREE FROM REDNESS OR EDEMA , HR IS REG, PULSES ARE STRONG X4, ABD IS SOFT WITH ACTIVE BS. BREATH SOUNDS ARE DIMINISHED AND CRACKLES. TELE MONITOR IN PLACE. CONTINUE TO OBSERVE AND MONITOR.
--- NOTE | 2020-10-17 11:20 | NUR ---
FAMILY CALLED AND INQUIRED ABOUT PT. INFORMED OF THE WOUND CARE, PT AND CHECKING LABS IN THE AM. STATED" RECEIVED A CALL LAST NIGHT FROM A PROCUREMENT ENGINEER RE: [facility]" EXPLAINED THAT PT SUGGESTS EITHER HOME HEALTH OR REHAB FOR STRENGHTENING.
--- NOTE | 2020-10-17 12:45 | NUR ---
PT IS RELAXING IN BED WITH NO DISTRESS NOTED. IV SITE IS FREE FROM REDNESS OR EDEMA.
--- NOTE | 2020-10-17 14:53 | NUR ---
DR AMBRIZ IN TO VISIT WITH PT. INFORMED OF " NO STAGES ON WOUND ON BUTTOCK,VERY CLOSED AND DRY"
--- NOTE | 2020-10-17 16:15 | NUR ---
PT IS RELAXING IN BED WITH NO DISTRESS NOTED. IV SITE IS FREE FROM REDNESS OR EDEMA.
--- NOTE | 2020-10-17 18:06 | NUR ---
PT REQUEST NOT TO HAVE ANY MORE STOOL SOFTENERS.
[2020-10-18 04:00] VITALS: BP 163/88
--- NOTE | 2020-10-18 05:16 | NUR ---
PT RESTING IN BED W/O S/S OF SOB OR DISTRESS, ON ROOM AIR, TOLERATING WELL. PT DENIES PAIN AT THIS TIME, STATES SHE " IS COLD". WARM BLANKET PROVIDED. BED LOCKED LOW CALL LIGHT IN REACH. WILL CONTINUE TO MONITOR.
[2020-10-18 06:08] LABS: HEMOGLOBIN 8.9 g/dl (12.0-16.0); IMMATURE GRANULOCYTES 5.4 % (0.0-5.0); MEAN CELL VOLUME 96.3 fL CALC (80.0-100.0); MEAN CORPUSCULAR HGB 29.6 pG CALC (26.0-32.0); MEAN CORPUSCULAR HGB CONC 30.7 g/dL CAL (32.0-36.0); NEUT# 8.04 thou/uL (2.00-7.15); RED BLOOD COUNT 3.01 mill/uL (4.20-5.60); RED CELL DISTRI WIDTH 13.3 % (11.5-15.5)
[2020-10-18 06:47] LABS: ALBUMIN 3.3 g/dL (3.2-5.0); BILIRUBIN, TOTAL 0.3 mg/dL (0.0-1.4); C-REACTIVE PROTEIN 1.4 mg/dL (0-0.9); CREATININE 1.8 mg/dL (0.5-1.0); POTASSIUM 5.1 mmol/l (3.5-5.1); TOTAL PROTEIN 6.3 g/dL (6.3-8.2)
[2020-10-18 09:30] VITALS: BP 166/80
--- NOTE | 2020-10-18 09:30 | NUR ---
ASSESSMENT IS COMPLETED: IV SITE IS FREE FROM REDNESS OR EDMEA. HR IS REG,PULSES ARE STRONG X4, ABD IS SOFT WITH ACTIV EBS. BREATH SOUNDS ARE CLEAR,BILATERALLY., CONTINUE TO OBSERVE AND MONITOR.
[2020-10-18 10:30] VITALS: BP 174/69
[2020-10-18] MEDS ORDERED: LORTAB 5/3255 MG PO (11:32)
[2020-10-18] MEDS ORDERED: DEXAMETHASON6 MG PO (11:32)
[2020-10-18] MEDS ORDERED: ZITHROMAX250 MG PO (11:32)
[2020-10-18] MEDS ORDERED: AMLODIPINE BESYL5 MG PO (11:34)
--- NOTE | 2020-10-18 12:00 | NUR ---
PT IS RELAXINGIN BED INFORMED OF THE TRANSFER TO REHAB. CONTINUE TO OBSERVE AND MONITOR.
--- NOTE | 2020-10-18 13:35 | NUR ---
PT. NOTE Patient being discharged at 3pm, was being bathed as entered room. Asked patient if she wanted to participate doing any exercises and patient stated "no".
[2020-10-18 15:15] VITALS: BP 172/66
--- NOTE | 2020-10-18 16:00 | NUR ---
IV SITE IS FREE FROM REDNESS OR EDEMA. WAITING ON TRANSPORT TO COME.
--- NOTE | 2020-10-18 18:56 | NUR ---
[facility] IN TO COMPRESSOR HOUSE OPERATOR PT. PT C/O BECOMING SOB WHEN EXERTED HERSELF TO THE STRETCHER. SUSTAINED A SKIN TEAR ON HER LEFT ARM FROM THE DOOR. PLACED AN O2 ON PT. IV SITE ALREADY DISCONITNEUD. COLOR AND BREATHING ARE COMING BACK TO NORMAL. DRESSED THE SKIN TEAR ON HER LEFT ARM WITH 2X2 AND PAPER TAPE.
--- NOTE | 2020-10-18 19:05 | NUR ---
EUGENIO FROM [facility] RECEIVED REPORT. [facility] JUST LEFT WITH PT. Discharge instructions given. Patient verbalizes understanding of same. Discharged in stable condition via Medical Transport to *Other with *Other. All belongings sent with pt.
== END 2020-10-18 19:00 | DRG 177 ==
LOC: ED 09:36 → ED-I 10:16 → ED 12:24 → MS2 12:25
PROVIDERS: Nurse Practitioner; ADMIT Internal Medicine; ATTEND Internal Medicine
PROC: 3E0234Z Introduction of Serum, Toxoid and Vaccine into Muscle, Percutaneous Approach (ICD-10-PCS; principal; 2020-10-15)
DX: U07.1 COVID-19 (principal); J12.82 Pneumonia due to coronavirus disease 2019; N17.9 Acute kidney failure, unspecified; N39.0 Urinary tract infection, site not specified; L98.418 Non-pressure chronic ulcer of buttock with other specified severity; Z68.41 Body mass index [BMI] 40.0-44.9, adult; R11.2 Nausea with vomiting, unspecified; E11.22 Type 2 diabetes mellitus with diabetic chronic kidney disease; I12.9 Hypertensive chronic kidney disease with stage 1 through stage 4 chronic kidney disease, or unspecified chronic kidney disease; N18.9 Chronic kidney disease, unspecified; E03.9 Hypothyroidism, unspecified; I69.398 Other sequelae of cerebral infarction; R29.818 Other symptoms and signs involving the nervous system; E66.9 Obesity, unspecified; R32 Unspecified urinary incontinence; E78.5 Hyperlipidemia, unspecified; G89.29 Other chronic pain; M54.9 Dorsalgia, unspecified; B96.20 Unspecified Escherichia coli [E. coli] as the cause of diseases classified elsewhere; Z23 Encounter for immunization; Z79.4 Long term (current) use of insulin; Z74.01 Bed confinement status
CPT/HCPCS: G0378; J1650

== ENCOUNTER 2022-06-28 20:51 | Emergency (ER) | payer MEDICARE ==
[~2022-06-28] VITALS: Ht 154.9 cm; Wt 92.0 kg
[~2022-06-28 20:51] MED LIST changes: +CARVEDILOL25 MG PO; +DEXAMETHASON6 MG PO; +DITROPAN XL5 MG PO; +FERROUS SULF325 M2 PO; +FLONASE AL50 MCG/ACT EN; +FLONASE SE27.5 MCG/S; +HYDRALAZINE10 M2 PO; +LASIX 20 MG TAB20 MG PO; +LORTAB 5/3255 MG PO; +SENOKOT S1 TAB PO; +SINGULAIR10 MG PO; +ZITHROMAX250 MG PO
[2022-06-28 21:13] VITALS: BP 155/71
[2022-06-28 21:31] VITALS: BP 156/57
[2022-06-28 22:01] VITALS: BP 168/65
[2022-07-02 22:57] VITALS: BP 168/65
== END 2022-06-28 23:15 | disposition home or self-care (01) ==
LOC: ED 20:51
PROC: 0HQ1XZZ Repair Face Skin, External Approach (ICD-10-PCS; principal; 2022-06-28)
DX: L76.21 Postprocedural hemorrhage of skin and subcutaneous tissue following a dermatologic procedure (principal); E11.9 Type 2 diabetes mellitus without complications; I10 Essential (primary) hypertension; E78.00 Pure hypercholesterolemia, unspecified; E03.9 Hypothyroidism, unspecified; Y83.8 Other surgical procedures as the cause of abnormal reaction of the patient, or of later complication, without mention of misadventure at the time of the procedure; Z79.4 Long term (current) use of insulin; Z86.73 Personal history of transient ischemic attack (TIA), and cerebral infarction without residual deficits

== ENCOUNTER 2022-12-15 12:52 | Observation (INO) | payer MEDICARE ==
[2022-12-15] VITALS (19 sets, daily range): BP systolic 96–170; BP diastolic 37–114
[~2022-12-15] VITALS: Ht 154.9 cm; Wt 90.0 kg
--- NOTE | 2022-12-15 14:10 | NUR ---
PATIENT TO ROOM 12 VIA WHEELCHAIR AT THIS TIME.
[2022-12-15 15:12] LABS: BASO% 0.4 % (0-3); EOS% 2.1 % (0-8); HEMATOCRIT 27.7 % (37.0-47.0); HEMOGLOBIN 8.5 g/dl (12.0-16.0); IMMATURE GRANULOCYTES 0.6 % (0.0-5.0); LYMPH% 11.3 % (15-41); MEAN CELL VOLUME 99.3 fL CALC (80.0-100.0); MEAN CORPUSCULAR HGB 30.5 pG CALC (26.0-32.0); MEAN CORPUSCULAR HGB CONC 30.7 g/dL CAL (32.0-36.0); MONO% 12.4 % (2-13); NEUT# 8.09 thou/uL (2.00-7.15); NEUT% 73.2 % (42-76); RED BLOOD COUNT 2.79 mill/uL (4.20-5.60); RED CELL DISTRI WIDTH 13.3 % (11.5-15.5)
--- NOTE | 2022-12-15 15:23 | NUR ---
Reassessment of patient completed. No distress noted.
[2022-12-15 15:37] LABS: ALBUMIN 3.9 g/dL (3.2-5.0); BILIRUBIN, TOTAL 0.3 mg/dL (0.02-1.3); CREATININE 3.4 mg/dL (0.5-1.0); MAGNESIUM 2.1 mg/dL (1.6-2.3); TOTAL PROTEIN 6.5 g/dL (6.3-8.2)
[2022-12-15 15:40] LABS: POTASSIUM 4.2 mmol/l (3.5-5.1)
--- NOTE | 2022-12-15 16:10 | NUR ---
Reassessment of patient completed. No distress noted.
[2022-12-15] MEDS ORDERED: HYDROCO/APAP1 TA9 PO (16:30)
--- NOTE | 2022-12-15 17:07 | NUR ---
REPORT CALLED TO MEDICAL/SURGICAL NURSE FOR ROOM 262
--- NOTE | 2022-12-15 17:57 | NUR ---
Patient arrived to room 262 at 1745 via wheelchair. Daughter in law accompanying. Has own glucometer with freestyle attached to arm to avoid finger sticks. Head to toe assessment completed. Denies pain or discomfort at this time. Oriented to room. Call light within reach.
--- NOTE | 2022-12-15 21:14 | NUR ---
PT REFUSED FINGER PRICK, WANTED TO USE HER OWN GLUCOSE METER. GLUCOSE WAS 173 NURSE NOTIFIED.
--- NOTE | 2022-12-15 21:55 | NUR ---
PATIENT ALERT AND ORIENTED. SITTING UP IN BED WATCHING TV. ASSESSMENT COMPLETE. PATIENT HAS IMPLANTED GLUCOSE MONITOR AND REFUSE TO HAVE FINGER PRICKED WITH HOSPITAL GLUCOSE MONITOR. EXPLAINED TO PATIENT THE IMPORTANCE OF USING HOSPITAL EQUIPMEMT AND THE SIGNIFICANCE IT HAS FOR HUMALOG SLIDING SCALE DOSING. PATIENT WENT ON TO REFUSE HUMALOG DOSE AND REFUSED LEVEMIR 40 UNITS BUT INSTEAD REQUESTED 20 UNITS THIS IS THE AMOUNT SHE TAKES FOR A BLOOD GLUCOSE OF 173. PM MEDS GIVEN AT THIS TIME WITHOUT DIFFICULTY. PATIENT DENIES PAIN AT THIS TIME CALL LIGHT WITHIN REACH.
--- NOTE | 2022-12-15 22:17 | NUR ---
PER TOPPER PACKER, 8 BEATS OF VTACH NOTED. UPON ASSESSMENT OF PATIENT, SHE DENIES ANY SYMPTOMS OF FEELING AN IRREGULAR HEART BEAT AND DENIES ANY DISTRESS. PHYSICIAN NOTIFIED AT THIS TIME, ORDER RECEIVED FOR MAGNESIUM LEVEL NOW.
--- NOTE | 2022-12-16 02:46 | NUR ---
RESTING QUIETLY EYES CLOSED. CALL LIGHT WITHIN REACH.
--- NOTE | 2022-12-16 04:00 | NUR ---
RESTING COMFORTABLEY, NO DISTRESS NOTED.
[2022-12-16 04:35] VITALS: BP 156/37
[2022-12-16 05:55] LABS: ALBUMIN 3.6 g/dL (3.2-5.0); CREATININE 3.4 mg/dL (0.5-1.0); POTASSIUM 3.7 mmol/l (3.5-5.1)
[2022-12-16 06:00] VITALS: BP 146/47
--- NOTE | 2022-12-16 06:45 | NUR ---
pt glucose was 143@0630
--- NOTE | 2022-12-16 08:00 | NUR ---
PT LAYING IN BED WITH HOB, ALERT AND OREINTED X 3, PT HAS NO C/O PAIN AT THIS TIME. IV SITE TO LEFT WRIST CLEAN AND INTACT WITH NS @ 50 ML/HR. TELE ON WITH ALL LEADS ATTACHED. PURE WICK PLACED TO MONITOR OUTPUT. PT HAS CALL LIGHT WITHIN REACH AND ALL SAFETY MEASURES IN PLACE.
[2022-12-16 08:37] VITALS: BP 145/41
[2022-12-16 10:42] VITALS: BP 148/29
--- NOTE | 2022-12-16 10:55 | NUR ---
pt glucose was 179 @1100
--- NOTE | 2022-12-16 12:00 | NUR ---
PT RESTING IN BED EATING LUNCH, PT HAS NO C/O PAIN AT THIS TIME. IV SITE TO LEFT WRIST REMOVED WITH CATHETER INTACT FOR DISCHARGE. PT HAS CALL LIGHT WITHIN REACH.
--- NOTE | 2022-12-16 13:38 | NUR ---
Discharge instructions given. Patient verbalizes understanding of same. Discharged in stable condition via Wheelchair to Home with relative. All belongings sent with pt.
== END 2022-12-16 13:39 ==
LOC: ED 12:52 → ED-I 15:38 → ED 16:15 → MS2 16:16
PROVIDERS: Internal Medicine Nephrology; Nurse Practitioner; ADMIT Internal Medicine; ATTEND Internal Medicine
DX: R11.2 Nausea with vomiting, unspecified (principal); I12.0 Hypertensive chronic kidney disease with stage 5 chronic kidney disease or end stage renal disease; E11.22 Type 2 diabetes mellitus with diabetic chronic kidney disease; N18.5 Chronic kidney disease, stage 5; I69.351 Hemiplegia and hemiparesis following cerebral infarction affecting right dominant side; D64.9 Anemia, unspecified; R60.0 Localized edema; E03.9 Hypothyroidism, unspecified; E78.5 Hyperlipidemia, unspecified; M54.9 Dorsalgia, unspecified; G89.29 Other chronic pain; Z79.4 Long term (current) use of insulin

== ENCOUNTER 2022-12-31 20:29 | Inpatient (IN) | payer MEDICARE ==
[~2022-12-31] VITALS: Ht 154.9 cm; Wt 93.7 kg
[2022-12-31] VITALS (8 sets, daily range): BP systolic 142–154; BP diastolic 56–69
[~2022-12-31 20:29] MED LIST changes: +HYDRALAZINE HYD50 MG PO; -HYDRALAZINE10 M2 PO; +LANTUS100 UNIT SC
[2022-12-31 21:25] LABS: BASO% 0.2 % (0-3); EOS% 0.2 % (0-8); HEMATOCRIT 27.5 % (37.0-47.0); HEMOGLOBIN 8.3 g/dl (12.0-16.0); IMMATURE GRANULOCYTES 0.5 % (0.0-5.0); LYMPH% 2.6 % (15-41); MEAN CELL VOLUME 101.5 fL CALC (80.0-100.0); MEAN CORPUSCULAR HGB 30.6 pG CALC (26.0-32.0); MEAN CORPUSCULAR HGB CONC 30.2 g/dL CAL (32.0-36.0); MONO% 5.6 % (2-13); NEUT# 22.24 thou/uL (2.00-7.15); NEUT% 90.9 % (42-76); RED BLOOD COUNT 2.71 mill/uL (4.20-5.60); RED CELL DISTRI WIDTH 14.3 % (11.5-15.5)
[2022-12-31 21:37] LABS: ALBUMIN 4.1 g/dL (3.2-5.0); CREATININE 3.1 mg/dL (0.5-1.0); TOTAL PROTEIN 7.2 g/dL (6.3-8.2)
[2022-12-31 21:38] LABS: BILIRUBIN, TOTAL 0.5 mg/dL (0.02-1.3); POTASSIUM 4.9 mmol/l (3.5-5.1)
[2023-01-01 00:05] LABS: URINE BILIRUBIN - DIPSTICK NEGATIVE (NEGATIVE); URINE BLOOD DIPSTICK NEGATIVE (NEGATIVE); URINE COLOR YELLOW; URINE GLUCOSE - DIPSTICK NEGATIVE (NEGATIVE); URINE KETONE NEGATIVE (NEGATIVE); URINE LEUK ESTERASE MODERATE (NEGATIVE); URINE NITRITE - DIPSTICK NEGATIVE (Negative); URINE PH 5.5 (4.5-8.0); URINE PROTEIN - DIPSTICK 100 mg/dL (NEG-TRACE); URINE SPECIFIC GRAVITY 1.015; URINE UROBILINOGEN - DIPSTICK 0.2 E.U./dL (0.2)
[2023-01-01 00:13] LABS: URINE BACTERIA MANY hpf; URINE SQUAMOUS EPITHELIAL CELL FEW EPI/hpf (0-FEW); URINE WBC 20-50 WBC/hpf (0-5)
[2023-01-01 04:55] VITALS: BP 128/55
[2023-01-01 06:15] VITALS: BP 145/44
[2023-01-01 11:00] VITALS: BP 136/40
[2023-01-01 15:25] VITALS: BP 132/61
[2023-01-01 15:35] VITALS: BP 132/61
[2023-01-01 19:11] VITALS: BP 133/51
[2023-01-02] VITALS (8 sets, daily range): BP systolic 121–149; BP diastolic 38–63
[2023-01-02 05:43] LABS: BASO% 0.1 % (0-3); HEMATOCRIT 23.8 % (37.0-47.0); HEMOGLOBIN 7.4 g/dl (12.0-16.0); IMMATURE GRANULOCYTES 0.9 % (0.0-5.0); LYMPH% 3.4 % (15-41); MEAN CELL VOLUME 100.4 fL CALC (80.0-100.0); MEAN CORPUSCULAR HGB 31.2 pG CALC (26.0-32.0); MEAN CORPUSCULAR HGB CONC 31.1 g/dL CAL (32.0-36.0); MONO% 2.3 % (2-13); NEUT# 15.77 thou/uL (2.00-7.15); NEUT% 93.3 % (42-76); RED BLOOD COUNT 2.37 mill/uL (4.20-5.60); RED CELL DISTRI WIDTH 14.3 % (11.5-15.5)
[2023-01-02 05:48] LABS: CREATININE 3.2 mg/dL (0.5-1.0); MAGNESIUM 2.1 mg/dL (1.6-2.3); POTASSIUM 5.1 mmol/l (3.5-5.1)
[2023-01-02 05:52] LABS: ALBUMIN 3.2 g/dL (3.2-5.0); BILIRUBIN, TOTAL 0.2 mg/dL (0.02-1.3); TOTAL PROTEIN 5.7 g/dL (6.3-8.2)
[2023-01-03 07:00] VITALS: BP 137/51
[2023-01-03 09:49] LABS: ALBUMIN 3.6 g/dL (3.2-5.0); CREATININE 3.4 mg/dL (0.5-1.0); MAGNESIUM 2.5 mg/dL (1.6-2.3); TOTAL PROTEIN 6.6 g/dL (6.3-8.2)
[2023-01-03 09:53] LABS: C-REACTIVE PROTEIN 7.3 mg/dL (0-0.9)
[2023-01-03 10:34] LABS: BILIRUBIN, TOTAL 0.1 mg/dL (0.02-1.3)
[2023-01-03 10:35] LABS: POTASSIUM 5.3 mmol/l (3.5-5.1)
[2023-01-03 10:52] VITALS: BP 141/56
[2023-01-03 11:06] LABS: BASO% 0.2 % (0-3); HEMATOCRIT 25.2 % (37.0-47.0); HEMOGLOBIN 7.6 g/dl (12.0-16.0); MEAN CELL VOLUME 100.8 fL CALC (80.0-100.0); MEAN CORPUSCULAR HGB 30.4 pG CALC (26.0-32.0); MEAN CORPUSCULAR HGB CONC 30.2 g/dL CAL (32.0-36.0); MONO% 4.7 % (2-13); NEUT# 15.08 thou/uL (2.00-7.15); NEUT% 91.1 % (42-76); RED BLOOD COUNT 2.5 mill/uL (4.20-5.60); RED CELL DISTRI WIDTH 14.6 % (11.5-15.5)
[2023-01-03 19:00] VITALS: BP 141/56
[2023-01-04] VITALS (8 sets, daily range): BP systolic 128–156; BP diastolic 46–60
[2023-01-04 05:01] LABS: HEMATOCRIT 25.5 % (37.0-47.0); HEMOGLOBIN 7.8 g/dl (12.0-16.0); MEAN CELL VOLUME 99.6 fL CALC (80.0-100.0); MEAN CORPUSCULAR HGB 30.5 pG CALC (26.0-32.0); MEAN CORPUSCULAR HGB CONC 30.6 g/dL CAL (32.0-36.0); RED BLOOD COUNT 2.56 mill/uL (4.20-5.60); RED CELL DISTRI WIDTH 14.3 % (11.5-15.5)
[2023-01-04 05:21] LABS: ALBUMIN 3.2 g/dL (3.2-5.0); CREATININE 3.2 mg/dL (0.5-1.0); MAGNESIUM 2.5 mg/dL (1.6-2.3); TOTAL PROTEIN 5.7 g/dL (6.3-8.2)
[2023-01-04 05:28] LABS: POTASSIUM 5.5 mmol/l (3.5-5.1)
[2023-01-05 00:02] VITALS: BP 143/52
[2023-01-05 00:04] VITALS: BP 145/55
[2023-01-05 04:57] LABS: ALBUMIN 3.2 g/dL (3.2-5.0)
[2023-01-05 05:09] LABS: POTASSIUM 5.2 mmol/l (3.5-5.1)
[2023-01-05] MEDS ORDERED: DOXYCYCLINE HY100 MG PO (13:45)
[2023-01-05] MEDS ORDERED: DEXAMETHASON6 MG PO (13:48)
[2023-01-05] MEDS ORDERED: LOKELMA10 GM PO (13:48)
== END 2023-01-05 17:36 | DRG 177 ==
LOC: ED 20:29 → MS2 22:08
PROVIDERS: Family Medicine; Internal Medicine; Internal Medicine Nephrology; Nurse Practitioner Family; ADMIT Internal Medicine; ATTEND Internal Medicine
DX: U07.1 COVID-19 (principal); J12.82 Pneumonia due to coronavirus disease 2019; J96.01 Acute respiratory failure with hypoxia; I13.2 Hypertensive heart and chronic kidney disease with heart failure and with stage 5 chronic kidney disease, or end stage renal disease; N18.5 Chronic kidney disease, stage 5; I50.32 Chronic diastolic (congestive) heart failure; N17.9 Acute kidney failure, unspecified; E87.20 Acidosis, unspecified; E87.5 Hyperkalemia; R79.89 Other specified abnormal findings of blood chemistry; T38.0X5A Adverse effect of glucocorticoids and synthetic analogues, initial encounter; E11.22 Type 2 diabetes mellitus with diabetic chronic kidney disease; E11.649 Type 2 diabetes mellitus with hypoglycemia without coma; E03.9 Hypothyroidism, unspecified; D64.9 Anemia, unspecified; M54.9 Dorsalgia, unspecified; G89.29 Other chronic pain; F41.9 Anxiety disorder, unspecified; I44.7 Left bundle-branch block, unspecified; Z79.4 Long term (current) use of insulin; Z86.73 Personal history of transient ischemic attack (TIA), and cerebral infarction without residual deficits
CPT/HCPCS: G0378; J1650